=== PATIENT | male | born 1965 | race Caucasian/White ===

== ENCOUNTER 2019-05-28 19:07 | Emergency (ER) | payer OTHER ==
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
[2019-05-28] MEDS ORDERED: GLUCAGON INJ 1 MG VIAL IV ONE (19:27)
[2019-05-28] MEDS ORDERED: GLUCAGON INJ 1 MG VIAL ONE (19:28)
[2019-05-28 22:03] VITALS: BP 140/89; TEMP 98.4; O2SAT 99
== END 2019-05-28 21:13 | disposition home or self-care (01) ==
LOC: ER 19:07
DX: T18.128A Food in esophagus causing other injury, initial encounter (principal); K22.2 Esophageal obstruction
CPT/HCPCS: 36415; 80053; 85025; J1610